=== PATIENT | male | born 2000 | race Two or more races ===

== ENCOUNTER 2025-04-26 12:21 | Emergency (ER) | payer MEDICAID, OTHER ==
[~2025-04-26] VITALS: Ht 182.9 cm; Wt 74.8 kg
[2025-04-26 12:29] VITALS: BP 143/74; PULSE 101; RESP 16; TEMP 98.7; O2SAT 97
[2025-04-26] MEDS: ONDANSETRON ODT 4 MG TAB PO ONE (13:58)
--- NOTE | 2025-04-26 14:02 | ED.PDOC ---
GI ASSESSMENT HPI Comments THIS IS A 25 YEAR-OLD MALE WHO PRESENTS TO THE ED WITH A CHIEF COMPLAINT OF N/V AFTER ETOH INTOXIFICATION X2 DAYS AGO. PATIENT ALSO REPORTS REOCCURRING RASH TO ABDOMEN AND BACK. PATIENT REPORTS ADDITIONAL RECENT EXPOSURE TO FAMILY ILLNESS. PATIENT HAS NO FURTHER COMPLAINTS AT THIS TIME AND OTHERWISE DENIES COUGH, HEMATEMESIS, DIZZINESS, CHEST PAIN, ABDOMINAL PAIN, OR LOC. PATIENT IS ALERT, ORIENTED X 4, AND HAS STEADY GAIT. Chief Complaint: Nausea/Vomiting Time Seen by MD: 13:56 Reviewed Notes: Nurses Notes, Medications, Allergies Home Meds Active Scripts Ondansetron Odt 4MG Tab (ZOFRAN PO) 4 Mg Tb, 4 MG PO BID, #14 TAB ODT TAB-DISSOLVE IN MOUTH, THEN SWALLOW Prov:PERI FELDER 04/26/25 Information Source: Patient Mode of Arrival: Ambulatory Timing: Days Duration: Since onset, Days Prehospital treatment: None Vomitus: Food Particles Severity: Moderate Recent: Contact Exposure, Ingestion of ETOH Associated sign and symptoms: Nausea, Vomiting Past Medical History PAST MEDICAL HISTORY: Denies Surgical History: Denies all surgeries Family History Family History: Reviewed,noncontributory to illness, No family hx of Cancer, No family hx of DM, No family hx of Heart alyson, No family hx of HTN, No family hx ofKidney alyson, No family hx of Liver alyson, No family hx of Lung alyson, No family hx of Stroke Social History Smoker: Non-Smoker Alcohol: Denies ETOH Use Drugs: Denies Drug Use Lives In: Home Constitutional: denies: chills, diaphoresis, fatigue, fever, malaise, sweats, weakness, others EENTM: denies: blurred vision, double vision, ear bleeding, ear discharge, ear drainage, ear pain, ear ringing, eye pain, eye redness, hearing loss, mouth pain, mouth swelling, nasal discharge, nose bleeding, nose congestion, nose pain, photophobia, tearing, throat pain, throat swelling, voice changes, others Respiratory: denies: cough, hemoptysis, orthopnea, SOB at rest, shortness of breath, SOB with excertion, stridor, wheezing, others Cardiovascular: denies: chest pain, dizzy spells, diaphoresis, Dyspnea on exertion, edema, irregular heart beat, left arm pain, lightheadedness, palpitations, PND, syncope, others Gastrointestinal: reports: nausea, vomiting; denies: abdomen distended, abdominal pain, blood streaked bowels, constipated, diarrhea, dysphagia, difficulty swallowing, hematemesis, melena, poor appetite, poor fluid intake, rectal bleeding, rectal pain, others Genitourinary: denies: burning, dysuria, flank pain, frequency, hematuria, incontinence, penile discharge, penile sore, pain, testicle pain, testicle swelling, urgency, others Neurological: denies: dizziness, fainting, headache, left sided numbness, left sided weakness, numbness, paresthesia, pre-existing deficit, right sided numbness, right sided weakness, seizure, speech problems, tingling, tremors, weakness, others Musculoskeletal: denies: back pain, gout, joint pain, joint swelling, muscle pain, muscle stiffness, neck pain, others Integumetry: denies: bruises, change in color, change in hair/nails, dryness, laceration, lesions, lumps, rash, wounds, others Allergic/Immunocompromised: denies: Difficulty Healing, Frequent Infections, Hives, Itching, others Hematologic/Lymphatic: denies: anemia, blood clots, easy bleeding, easy bruising, swollen glands, others Endocrine: denies: excessive hunger, excessive sweating, excessive thirst, excessive urination, flushing, intolerance to cold, intolerance to heat, unexplained weight gain, unexplained weight loss, others Psychiatric: denies: anxiety, bipolar disorder, depression, hopeless, panic disorder, schizophrenia, sleepless, suicidal, others All Other Systems: Reviewed and Negative Physical Exam General Appearance: Mild Distress, Normal HEENT: Normal ENT Inspection, PERRL/EOMI, Pharynx Normal, TMs Normal Neck: Full Range of Motion, Non-Tender, Normal, Normal Inspection Respiratory: Chest Non-Tender, Lungs Clear, No Accessory Muscle Use, No Respiratory Distress, Normal Breath Sounds Cardiovascular: No Edema, No JVD, No Murmur, No Gallop, Normal Peripheral Pulses, Regular Rate/Rhythm Breast Exam: Deferred Gastrointestinal: No Organomegaly, Non Tender, No Pulsatile Mass, Normal Bowel Sounds, Soft Genitalia: Deferred Pelvic: Deferred Rectal: Deferred Extremities: No calf tenderness, Normal capillary refill, Normal inspection, Normal range of motion, Non-tender, No pedal edema Musculoskeletal : Apperance: Normal Neurologic: Alert, architectural manager II-XII nml as Tested, No Motor Deficits, Normal Affect, Normal Mood, No Sensory Deficits Cerebellar Function: Normal Reflexes: Normal Skin: Dry, Normal Color, Warm Peripheral Pulses: 2+ carotid (R), 2+ carotid (L) Lymphatic: No Adenopathy Was a procedure done? Was a procedure done?: No GI differential Dx Differential Diagnosis: Gastroenteritis, Dehydration, Food Poisoning, Ba cterial, Parasitic, Viral X-Ray, Labs, Meds, VS Vital Signs Date Time Temp Pulse Resp B/P (MAP) Pulse Ox O2 Delivery O2 Flow Rate FiO2 04/26/25 12:29 98.7 101 16 143/74 97 98.7 Current Medications Medications (Trade) Dose Ordered Sig/Maribel Route Start Time Stop Time Status Last Admin Ondansetron HCl (Zofran Po) 4 mg ONCE ONCE PO 04/26/25 14:00 04/26/25 14:01 DC 04/26/25 13:58 X-Ray, Labs, Meds, VS Comment EXTERNAL MEDICAL RECORDS REVIEWED: [NONE] INDEPENDENT HISTORIANS: [NONE] SOCIAL DETERMINANTS OF HEALTH: [NONE] LABS ORDERED: PT DECLINED BLOOD TEST REVIEWED AND INTERPRETED RESULTS: NONE IMAGING ORDERED: NONE TREATMENTS ORDERED: ZOFRAN 4MG ODT PROCEDURES PERFORMED: NONE CRITICAL CARE TIME: NONE PATIENT LEFT AMA DUE TO AN INABILITY TO WAIT FOR BLOOD TESTS AND TREATMENT. PATIENT WILL RETURN TO THE ED AT A LATER TIME. PATIENT WAS PRESCRIBED ZOFRAN FOR N/V WITH MEDICATION WARNINGS GIVEN. I HAVE DISCUSSED THE PATIENT WITH THE ATTENDING PHYSICIAN, DR. TALLEY AND SHE AGREES WITH THE PATIENT'S PLAN OF CARE . Images Reviewed?: Images reviewed and evaluated by me Time of 1ST Reevaluation: 14:14 Reevaluation 1ST: Unchanged Patient Education/Counseling: Diagnosis, Treatment Family Education/Counseling: Diagnosis, Treatment SEPSIS Sepsis Screen Date sepsis recognized/suspect: Apr 26, 2025 Time Sepsis recognized/suspect: 1231 Recent Procedure: No On Antibiotic Therapy: No Respiratory Rate >20: No Heart Rate >90: Yes Temp<36 C (96.8 F) or >38.3 C: No SBP <90 or MAP <65 mmHG: No New Acute Mental Status Change: No Is the patient on CPAP, BIPAP,: No Vital Signs Date Time Temp Pulse Resp B/P (MAP) Pulse Ox O2 Delivery O2 Flow Rate FiO2 04/26/25 12:29 98.7 101 16 143/74 97 98.7 Medications Medications Dose Ordered Sig/Maribel Route Start Time Stop Time Status Last Admin Dose Admin Ondansetron HCl 4 mg ONCE ONCE PO 04/26/25 14:00 04/26/25 14:01 DC 04/26/25 13:58 Departure 1 Departure Time of Disposition: 14:17 Impression: Primary Impression: Nausea with vomiting Qualified Codes: R11.2 - Nausea with vomiting, unspecified Additional Impression: ETOH abuse Disposition: LEFT AGAINST MEDICAL ADVICE Condition: Stable Additional Instructions: e-Prescriptions Ondansetron Odt 4MG Tab (ZOFRAN PO) 4 Mg Tb 4 MG PO BID, #14 TAB ODT TAB-DISSOLVE IN MOUTH, THEN SWALLOW Prov: PERI FELDER 04/26/25 Critical Care Note Critical Care Time?: No Stability Stability form required: No Heart Score Heart Score: Heart Score Response (Comments) Value History N/A 0 EKG N/A 0 Age N/A 0 Risk Factors N/A 0 Troponin N/A 0 Total 0 I personally scribed for PERI FELDER ([email or web address]) on 04/26/25 at 14:02. Electronically submitted by Lenora Maher ([employer]). I personally scribed for PERI FELDER ([email or web address]) on 04/26/25 at 14:06. Electronically submitted by Lenora Maher ([employer]). PERI FELDER Apr 26, 2025 14:02
[2025-04-26] MEDS ORDERED: ZOFR4T PO (14:06)
== END 2025-04-26 13:56 | disposition left against medical advice (07) ==
LOC: ER 12:21
DX: F10.10 Alcohol abuse, uncomplicated (principal); R11.2 Nausea with vomiting, unspecified; Y90.9 Presence of alcohol in blood, level not specified
CPT/HCPCS: 99283; Q0162

== ENCOUNTER 2025-04-27 09:17 | Inpatient (IN) | payer MEDICAID ==
[~2025-04-27] VITALS: Ht 182.9 cm; Wt 73.5 kg
[~2025-04-27 09:17] MED LIST: ZOFR4T PO
--- NOTE | 2025-04-27 09:34 | ED.PDOC ---
GI ASSESSMENT HPI Comments This is a 25 year old male presenting to the ED with chief complaint of N/V. Patient reports that he has been experiencing nausea and vomiting for the past 5 days with associated abdominal pain and chest pain. Patient relays that he was seen yesterday in the ED, however, medication provided only minimal relief and when he was discharged, he went to sleep and did not shredder picker his prescription. Patient states that his children at home had similar symptoms prior to onset of his own. Patient notes Zofran provided no relief in nausea. Patient denies any fever, chills, diarrhea, SOB, or sore throat. Chief Complaint: Nausea/Vomiting Time Seen by MD: 09:33 Reviewed Notes: Nurses Notes, Medications, Allergies Allergies: Coded Allergies: NO KNOWN ALLERGIES (Unverified , 04/27/25) Home Meds Active Scripts Ondansetron Odt 4MG Tab (ZOFRAN PO) 4 Mg Tb, 4 MG PO BID, #14 TAB ODT TAB-DISSOLVE IN MOUTH, THEN SWALLOW Prov:PERI FELDER 04/26/25 Information Source: Patient Mode of Arrival: Ambulatory Timing: Days Duration: Since onset Prehospital treatment: None Quality: Aching Vomitus: Watery Stool: Normal Severity: Moderate Recent: None Recent Hx of: None Pain Location: Epigastric Modifying Factors: Nothing Associated sign and symptoms: Nausea, Vomiting, Abdominal Pain Past Medical History PAST MEDICAL HISTORY: Denies Surgical History: Denies all surgeries Family History Family History: Reviewed,noncontributory to illness, No family hx of Cancer, No family hx of DM, No family hx of Heart alyson, No family hx of HTN, No family hx ofKidney alyson, No family hx of Liver alyson, No family hx of Lung alyson, No family hx of Stroke Social History Smoker: Non-Smoker Alcohol: Denies ETOH Use Drugs: Denies Drug Use Lives In: Home Constitutional: denies: chills, diaphoresis, fatigue, fever, malaise, sweats, weakness, others EENTM: denies: blurred vision, double vision, ear bleeding, ear discharge, ear drainage, ear pain, ear ringing, eye pain, eye redness, hearing loss, mouth pain, mouth swelling, nasal discharge, nose bleeding, nose congestion, nose pain, photophobia, tearing, throat pain, throat swelling, voice changes, others Respiratory: denies: cough, hemoptysis, orthopnea, SOB at rest, shortness of breath, SOB with excertion, stridor, wheezing, others Cardiovascular: reports: chest pain; denies: dizzy spells, diaphoresis, Dyspnea on exertion, edema, irregular heart beat, left arm pain, lightheadedness, palpitations, PND, syncope, others Gastrointestinal: reports: abdominal pain, nausea, vomiting; denies: abdomen distended, blood streaked bowels, constipated, diarrhea, dysphagia, difficulty s wallowing, hematemesis, melena, poor appetite, poor fluid intake, rectal bleeding, rectal pain, others Genitourinary: denies: burning, dysuria, flank pain, frequency, hematuria, incontinence, penile discharge, penile sore, pain, testicle pain, testicle swelling, urgency, others Neurological: denies: dizziness, fainting, headache, left sided numbness, left sided weakness, numbness, paresthesia, pre-existing deficit, right sided numbness, right sided weakness, seizure, speech problems, tingling, tremors, weakness, others Musculoskeletal: denies: back pain, gout, joint pain, joint swelling, muscle pain, muscle stiffness, neck pain, others Integumetry: denies: bruises, change in color, change in hair/nails, dryness, laceration, lesions, lumps, rash, wounds, others Allergic/Immunocompromised: denies: Difficulty Healing, Frequent Infections, Hives, Itching, others Hematologic/Lymphatic: denies: anemia, blood clots, easy bleeding, easy bruising, swollen glands, others Endocrine: denies: excessive hunger, excessive sweating, excessive thirst, excessive urination, flushing, intolerance to cold, intolerance to heat, un explained weight gain, unexplained weight loss, others Psychiatric: denies: anxiety, bipolar disorder, depression, hopeless, panic disorder, schizophrenia, sleepless, suicidal, others All Other Systems: Reviewed and Negative Physical Exam General Appearance: No Apparent Distress, Normal HEENT: Normal ENT Inspection, Pharynx Normal, TMs Normal Neck: Full Range of Motion, Non-Tender, Normal, Normal Inspection Respiratory: Chest Non-Tender, Lungs Clear, No Accessory Muscle Use, No Respiratory Distress, Normal Breath Sounds Cardiovascular: No Edema, No JVD, No Murmur, No Gallop, Normal Peripheral Pu lses, Regular Rate/Rhythm Breast Exam: Deferred Gastrointestinal: No Organomegaly, Non Tender, No Pulsatile Mass, Normal Bowel Sounds, Soft Genitalia: Deferred Pelvic: Deferred Rectal: Deferred Extremities: No calf tenderness, Normal capillary refill, Normal inspection, Normal range of motion, Non-tender, No pedal edema Musculoskeletal : Apperance: Normal Neurologic: Alert, lead software test engineer II-XII nml as Tested, No Motor Deficits, Normal Affect, Normal Mood, No Sensory Deficits Cerebellar Function: Normal Reflexes: Normal Skin: Dry, Normal Color, Warm Lymphatic: No Adenopathy Was a procedure done? Was a procedure done?: No GI differential Dx Differential Diagnosis: Gastroenteritis, Electrolyte Imbalance, Food Poisoning, Bacterial, Viral X-Ray, Labs, Meds, VS Vital Signs Date Time Temp Pulse Resp B/P (MAP) Pulse Ox O2 Delivery O2 Flow Rate FiO2 04/27/25 09:20 98.1 120 16 148/99 97 98.1 Lab Test 04/27/25 09:38 Range/Units White Blood Count 26.1 H 4.4-10.8 10^3/uL Red Blood Count 5.64 4.5-5.90 10^6/uL Hemoglobin 19.0 H 13.5-17.5 g/dL Hematocrit 54.9 H 41.0-53.0 % Mean Corpuscular Volume 97.2 80.0-100.0 fL Mean Corpuscular Hemoglobin 33.6 H 28.0-32.0 pg Mean Corpuscular Hemoglobin Concent 34.5 32.0-36.0 g/dL Red Cell Distribution Width 15.2 H 11.8-14.3 % Platelet Count 249 140-450 10^3/uL Mean Platelet Volume 8.6 6.9-10.8 fL Neutrophils (%) (Auto) 80.2 H 37.0-80.0 % Lymphocytes (%) (Auto) 10.2 10.0-50.0 % Monocytes (%) (Auto) 8.8 0.0-12.0 % Eosinophils (%) (Auto) 0.4 0.0-7.0 % Basophils (%) (Auto) 0.4 0.0-2.0 % Neutrophils # (Auto) 21.0 H 1.6-8.6 10 ^3/uL Lymphocytes # (Auto) 2.7 0.4-5.4 10 ^3/uL Monocytes # (Auto) 2.3 H 0-1.3 10 ^3/uL Eosinophils # (Auto) 0.1 0-0.8 10 ^3/uL Basophils # (Auto) 0.1 0-0.2 10 ^3/uL Nucleated Red Blood Cells 0.1 % Sodium Level 137 136-145 mmol/L Potassium Level 4.5 3.5-5.1 mmol/L Chloride Level 93 L 98-107 mmol/L Carbon Dioxide Level 29 20-31 mmol/L Anion Gap 15 5-15 Blood Urea Nitrogen 38 H 9-23 mg/dL Creatinine 4.06 H 0.700-1.30 mg/dL Glomerular Filtration Rate Calc 20 >90 mL/min BUN/Creatinine Ratio 9.4 L 10.0-20.0 Serum Glucose 134 H 74-106 mg/dL Calcium Level 11.0 H 8.7-10.4 mg/dL Current Medications Medications (Trade) Dose Ordered Sig/Maribel Route Start Time Stop Time Status Last Admin Sodium Chloride 1,000 ml @ 1,000 mls/hr Q1H ONCE IV 04/27/25 09:45 04/27/25 10:44 DC 04/27/25 10:11 Metoclopramide HCl (Reglan Injection) 10 mg ONCE ONCE IV 04/27/25 09:45 04/27/25 09:46 DC 04/27/25 10:11 Ketorolac Tromethamine (Toradol Injection) 15 mg ONCE ONCE IV 04/27/25 09:45 04/27/25 09:46 DC 04/27/25 10:11 Sodium Chloride 1,000 ml @ 1,000 mls/hr Q1H ONCE IV 04/27/25 11:30 04/27/25 12:29 DC 04/27/25 12:03 Cefepime HCl 50 ml @ 12.5 mls/hr ONCE ONCE IV 04/27/25 11:45 04/27/25 15:44 04/27/25 12:03 Time of 1ST Reevaluation: 10:32 Reevaluation 1ST: Improved Patient Education/Counseling: Diagnosis, Treatment Family Education/Counseling: No Family Present SEPSIS Sepsis Screen Date sepsis recognized/suspect: Apr 27, 2025 Time Sepsis recognized/suspect: 917 Recent Procedure: No On Antibiotic Therapy: No Respiratory Rate >20: No Heart Rate >90: Yes Temp<36 C (96.8 F) or >38.3 C: No SBP <90 or MAP <65 mmHG: No New Acute Mental Status Change: No Is the patient on CPAP, BIPAP,: No Physician Orders Rapid Influenza A&B (04/27/25 09:32) Covid19 Antigen Mignon (04/27/25 ) Lactic Acid W/ Reflex Order (04/27/25 11:22) Blood Culture (04/27/25 11:22) Chest Portable (04/27/25 11:22) Ct Ab Pel Wo Con-No Oral Or Iv (04/27/25 11:22) Cefepime 2gm/50ml Ns (Maxipime 2gm/50ml) (04/27/25 11:45) NS (04/27/25 13:15) Vital Signs Date Time Temp Pulse Resp B/P (MAP) Pulse Ox O2 Delivery O2 Flow Rate FiO2 04/27/25 09:20 98.1 120 16 148/99 97 98.1 Laboratory Tests Test 04/27/25 09:38 White Blood Count 26.1 10^3/uL (4.4-10.8) H Medications Medications Dose Ordered Sig/Maribel Route Start Time Stop Time Status Last Admin Dose Admin Cefepime HCl 50 ml @ 12.5 mls/hr ONCE ONCE IV 04/27/25 11:45 04/27/25 15:44 04/27/25 12:03 Ketorolac Tromethamine 15 mg ONCE ONCE IV 04/27/25 09:45 04/27/25 09:46 DC 04/27/25 10:11 Metoclopramide HCl 10 mg ONCE ONCE IV 04/27/25 09:45 04/27/25 09:46 DC 04/27/25 10:11 Sodium Chloride 1,000 ml @ 1,000 mls/hr Q1H ONCE IV 04/27/25 09:45 04/27/25 10:44 DC 04/27/25 10:11 Sodium Chloride 1,000 ml @ 1,000 mls/hr Q1H ONCE IV 04/27/25 11:30 04/27/25 12:29 DC 04/27/25 12:03 Departure 1 Departure Time of Disposition: 13:15 (Patient presents with new renal failure in the setting of colitis and profuse dehydration.) Impression: Primary Impression: Acute renal failure Qualified Codes: N17.9 - Acute kidney failure, unspecified Additional Impressions: Dehydration Shortness of breath Disposition: ADMITTED INPATIENT Admit to: Tele Condition: Guarded Critical Care Note Critical Care Time?: Yes Critical care comment: Acute renal failure Authorized and Performed by: Kody Patten MD Total critical care time: Approximately 38 minutes Due to a high probability of clinically significant, life threatening deterioration, the patient required my highest level of preparedness to intervene emergently and I personally spent this critical care time directly and personally managing the patient. This critical care time included obtaining a history; examining the patient; pulse oximetry; ordering and review of studies; arranging urgent treatment with development of a management plan; evaluation of patient's response to treatment; frequent reassessment; and, discussions with other providers. This critical care time was performed to assess and manage the high probability of imminent, life-threatening deterioration that could result in multi-organ failure. It was exclusive of separately billable procedures and treating other patients and teaching time. Please see my other sections and the rest of the note for further information on patient assessment and treatment. Stability Stability form required: No Heart Score Heart Score: Heart Score Response (Comments) Value History N/A 0 EKG N/A 0 Age N/A 0 Risk Factors N/A 0 Troponin N/A 0 Total 0 I personally scribed for KODY PATTEN MD ([email or web address]) on 04/27/25 at 09:34. Electronically submitted by Vasyl Lane ([email or web address]). KODY PATTEN MD Apr 27, 2025 09:34
[2025-04-27 09:57] LABS: Hematocrit 54.9 % (41.0-53.0); Hemoglobin 19.0 g/dL (13.5-17.5); Mean Corpuscular Hemoglobin 33.6 pg (28.0-32.0); Mean Corpuscular Volume 97.2 fL (80.0-100.0); Nucleated Red Blood Cells % 0.1 %
[2025-04-27 10:03] LABS: Chloride 93 mmol/L (98-107); Potassium 4.5 mmol/L (3.5-5.1); Sodium 137 mmol/L (136-145)
[2025-04-27 10:04] LABS: Anion Gap 15 (5-15); Carbon Dioxide 29 mmol/L (20-31)
[2025-04-27 10:05] LABS: Calcium 11.0 mg/dL (8.7-10.4)
[2025-04-27 10:09] LABS: BUN/Creatinine Ratio 9.4 (10.0-20.0)
[2025-04-27 10:11] LABS: Blood Urea Nitrogen 38 mg/dL (9-23); Glucose 134 mg/dL (74-106)
[2025-04-27] MEDS: SODIUM CHLORIDE 0.9% 1,000 ML IV ONE ×3 (10:11→13:15)
[2025-04-27] MEDS: METOCLOPRAMIDE HCL 5MG/ml INJ 2ml VIAL IV ONE (10:11)
[2025-04-27] MEDS: KETOROLAC TROMETH 30 MG/ML 1ML VIAL IV ONE (10:11)
--- NOTE | 2025-04-27 11:53 | DVH ---
XY CHEST PORTABLE, HISTORY: abdominal pain COMPARISON: None None TECHNICAL DATA: 1 view of the chest was obtained. FINDINGS: Lines and tubes: None Cardiomediastinal silhouette: normal Pulmonary vasculature: normal Lung expansion: normal Lung airspace: normal Lung interstitium: normal Pleura: normal Pneumothorax: no Bones: Unremarkable Other: no IMPRESSION: No acute intrathoracic abnormality.
[2025-04-27] MEDS: CEFEPIME 2GM/50ML NS 50 ML IV ONE (12:03)
--- NOTE | 2025-04-27 12:09 | DVH ---
Exam: CT CT AB PEL WO CON-NO ORAL OR IV History: abdominal pain Comparison Study: None Technique: Multidetector spiral CT of the abdomen was performed from lung bases to pubic symphysis. I maging was performed without IV contrast. Axial, coronal and sagittal multiplanar reformats were obta ined from the axial data set by the technologist. Radiation Dose : 1. Abdomen/Pelvis: CTDIvol 6.57 mGy, DLP 413.09 mGy*cm. Findings: Evaluation of solid organs is limited due to lack of intravenous contrast use. Lung Bases: No acute or significant lung base finding. Normal heart size. No pleural or pericardial effusion. Liver: The liver is normal in size. No focal lesions. Gallbladder and Biliary Tree: Unremarkable Spleen: Unremarkable Pancreas: The pancreas is grossly normal in appearance. Adrenal Glands: Unremarkable Kidneys: Kidneys are grossly normal without calculi or hydronephrosis. Bladder: Grossly unremarkable for degree of distention. Bowel: The stomach is grossly normal in appearance. Mild diffuse colonic bowel wall thickening; possi homar mild colitis. The appendix is not visualized; however, no secondary findings of acute appendiciti s identified. Ascites: Absent Lymphadenopathy: No mesenteric, retroperitoneal or periportal lymphadenopathy. Abdominal Wall and Mesentery: Unremarkable. Vasculature: The visualized abdominal aorta is normal in size and caliber. Evaluation of abdominal a nd pelvic vessels is limited due to lack of intravenous contrast. Pelvic Organs: Unremarkable Musculoskeletal: No aggressive focal bony lesions, acute fractures or dislocation. IMPRESSION: Mild diffuse colonic bowel wall thickening; possibly mild colitis. Radiation optimization: All CT scans at this facility use at least one of these dose optimization david hniques: automated exposure control mA and/or kV adjustment per patient size (includes targeted exam s where dose is matched to clinical indication) or iterative reconstruction.
[2025-04-27 12:11] VITALS: PULSE 70; RESP 22; O2SAT 97
[2025-04-27] MEDS ORDERED: ACETAMINOPHEN 325 MG TAB PO PRN (14:30)
[2025-04-27] MEDS ORDERED: MORPHINE SULFATE INJ 2 MG/ml SYRG IV PRN (14:30)
--- NOTE | 2025-04-27 14:33 | DVHHP2 ---
History of Present Illness Reason for Visit: Abdominal pain with nausea and vomiting History of Present Illness Vasyl Walker is a 25-year-old male with past medical history of 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 Patient reports that was here yesterday at [facility] was given sublingual Zofran and discharged. He states that the pain is worsening. He also reports that he took an [id number] hydration packet and nausea tablet with no relief. Patient also reports that he typically drinks a bottle of vodka about 750 mL per day and stopped drinking recently but restarted couple of days ago. He also reports that he drank a 5th of a bottle of hard liquor. Patient's parents mom Douglas and dad Patrick at the bedside. Patient also reports that he was vomiting brown and greenish bile. He states he has been unable to eat. Patient denies any recent trauma or injury, recent sick contacts, recent travels, recent ingestion of spoiled food, chest pain, shortness of breath, fever, chills, lightheadedness, weakness, dizziness, diarrhea, or urinary symptoms. Mom reports that the heart murmur had resolved including the kidney disease when he was discharged as a preemie. Hepatobiliary: Cirrhosis Renal/: Chronic renal insuff Past Medical History Prematurity Detached retina Heart murmur Past Surgical History: None Family History: Other (Mom with asthma) Smoke: No ALCOHOL: heavy Drugs: None Lives: with Family Domestic Violence: Neg Review of Systems Gastrointestinal: Nausea, Vomiting, Abdominal Pain Allergies: Coded Allergies: NO KNOWN ALLERGIES (Unverified , 04/27/25) Exam Vital Signs Vital Signs Date Time Temp Pulse Resp B/P (MAP) Pulse Ox O2 Delivery O2 Flow Rate FiO2 04/27/25 12:11 98.1 70 17 153/89 (110) 98 98.1 04/27/25 12:11 Room Air* 0 21 General Appearance: Alert, Oriented X3, Cooperative, No acute distress HEENT: Atraumatic, PERRLA, EOMI, Mucous membr. moist/pink Respiratory: Clear to auscultation, Normal air movement Cardiovascular: Regular rate, Normal S1, Normal S2, No murmurs Abdominal: Normal bowel sounds, Soft Extremities: No clubbing, No cyanosis, No edema, Normal pulses Skin: No significant lesion Neuro: Normal speech, Strength at 5/5 X4 ext, Normal tone, Sensation intact Psych/Mental Status: Mental status NL, Mood NL Labs/Xrays Labs Test 04/27/25 13:18 04/27/25 13:15 04/27/25 13:05 04/27/25 09:38 Range/Units Lactic Acid Level 1.3 0.4-2.0 mmol/L White Blood Count 26.1 H 4.4-10.8 10^3/uL Red Blood Count 5.64 4.5-5.90 10^6/uL Hemoglobin 19.0 H 13.5-17.5 g/dL Hematocrit 54.9 H 41.0-53.0 % Mean Corpuscular Volume 97.2 80.0-100.0 fL Mean Corpuscular Hemoglobin 33.6 H 28.0-32.0 pg Mean Corpuscular Hemoglobin Concent 34.5 32.0-36.0 g/dL Red Cell Distribution Width 15.2 H 11.8-14.3 % Platelet Count 249 140-450 10^3/uL Mean Platelet Volume 8.6 6.9-10.8 fL Neutrophils (%) (Auto) 80.2 H 37.0-80.0 % Lymphocytes (%) (Auto) 10.2 10.0-50.0 % Monocytes (%) (Auto) 8.8 0.0-12.0 % Eosinophils (%) (Auto) 0.4 0.0-7.0 % Basophils (%) (Auto) 0.4 0.0-2.0 % Neutrophils # (Auto) 21.0 H 1.6-8.6 10 ^3/uL Lymphocytes # (Auto) 2.7 0.4-5.4 10 ^3/uL Monocytes # (Auto) 2.3 H 0-1.3 10 ^3/uL Eosinophils # (Auto) 0.1 0-0.8 10 ^3/uL Basophils # (Auto) 0.1 0-0.2 10 ^3/uL Nucleated Red Blood Cells 0.1 % Sodium Level 137 136-145 mmol/L Potassium Level 4.5 3.5-5.1 mmol/L Chloride Level 93 L 98-107 mmol/L Carbon Dioxide Level 29 20-31 mmol/L Anion Gap 15 5-15 Blood Urea Nitrogen 38 H 9-23 mg/dL Creatinine 4.06 H 0.700-1.30 mg/dL Glomerular Filtration Rate Calc 20 >90 mL/min BUN/Creatinine Ratio 9.4 L 10.0-20.0 Serum Glucose 134 H 74-106 mg/dL Calcium Level 11.0 H 8.7-10.4 mg/dL XY CHEST PORTABLE, HISTORY: abdominal pain COMPARISON: None None TECHNICAL DATA: 1 view of the chest was obtained. FINDINGS: Lines and tubes: None Cardiomediastinal silhouette: normal Pulmonary vasculature: normal Lung expansion: normal Lung airspace: normal Lung interstitium: normal Pleura: normal Pneumothorax: no Bones: Unremarkable Other: no IMPRESSION: No acute intrathoracic abnormality. Exam: CT CT AB PEL WO CON-NO ORAL OR IV History: abdominal pain Comparison Study: None Technique: Multidetector spiral CT of the abdomen was performed from lung bases to pubic symphysis. Imaging was performed without IV contrast. Axial, coronal and sagittal multiplanar reformats were obtained from the axial data set by the technologist. Radiation Dose : 1. Abdomen/Pelvis: CTDIvol 6.57 mGy, DLP 413.09 mGy*cm. Findings: Evaluation of solid organs is limited due to lack of intravenous contrast use. Lung Bases: No acute or significant lung base finding. Normal heart size. No pleural or pericardial effusion. Liver: The liver is normal in size. No focal lesions. Gallbladder and Biliary Tree: Unremarkable Spleen: Unremarkable Pancreas: The pancreas is grossly normal in appearance. Adrenal Glands: Unremarkable Kidneys: Kidneys are grossly normal without calculi or hydronephrosis. Bladder: Grossly unremarkable for degree of distention. Bowel: The stomach is grossly normal in appearance. Mild diffuse colonic bowel wall thickening; possibly mild colitis. The appendix is not visualized; however, no secondary findings of acute appendicitis identified. Ascites: Absent Lymphadenopathy: No mesenteric, retroperitoneal or periportal lymphadenopathy. Abdominal Wall and Mesentery: Unremarkable. Vasculature: The visualized abdominal aorta is normal in size and caliber. Evaluation of abdominal and pelvic vessels is limited due to lack of intravenous contrast. Pelvic Organs: Unremarkable Musculoskeletal: No aggressive focal bony lesions, acute fractures or dislocation. IMPRESSION: Mild diffuse colonic bowel wall thickening; possibly mild colitis. SEPSIS Sepsis Screen Date sepsis recognized/suspect: Apr 27, 2025 Time Sepsis recognized/suspect: 0918 Recent Procedure: No On Antibiotic Therapy: No Respiratory Rate >20: No Heart Rate >90: Yes Temp<36 C (96.8 F) or >38.3 C: No SBP <90 or MAP <65 mmHG: No New Acute Mental Status Change: No Is the patient on CPAP, BIPAP,: No Physician Orders Rapid Influenza A&B (04/27/25 09:32) Covid19 Antigen Mignon (04/27/25 ) Blood Culture (04/27/25 11:22) Chest Portable (04/27/25 11:22) Ct Ab Pel Wo Con-No Oral Or Iv (04/27/25 11:22) Cefepime 2gm/50ml Ns (Maxipime 2gm/50ml) (04/27/25 11:45) Parathyroid Hormone Intact (04/27/25 14:26) Zosyn Extended Infusion (04/27/25 22:00) Blood Culture (04/27/25 14:26) Urinalysis (04/27/25 14:26) Urine Bacterial Culture (04/27/25 14:26) Erythrocyte Sedimentation Rate (04/27/25 14:26) C-Reactive Protein (04/27/25 14:26) Admit (04/27/25 14:26) Allergies (04/27/25 14:26) Code Status (04/27/25 14:26) 0.9% Ns 1000 Ml (04/27/25 14:30) Hydrocodone-Acet 5/325mg Tab ([place] (04/27/25 14:30) Ondansetron Hcl (Zofran) (04/27/25 14:30) Complete Blood Count (04/28/25 04:00) Comprehensive Metabolic Panel (04/28/25 04:00) Cardiac Diet-2gna,Lofat,Lochol (04/27/25 Dinner) Acetaminophen Tablet (Tylenol Tablet) (04/27/25 14:30) Morphine Sulfate Injection (04/27/25 14:30) Sequential Compression Device (04/27/25 ) Thyroid Stimulating Hormone (04/27/25 14:31) Urinalysis (04/27/25 14:31) Drug Screen (04/27/25 14:31) Vital Signs Date Time Temp Pulse Resp B/P (MAP) Pulse Ox O2 Delivery O2 Flow Rate FiO2 04/27/25 12:11 98.1 70 17 153/89 (110) 98 98.1 04/27/25 12:11 70 22 97 Room Air* 0 21 04/27/25 09:20 98.1 120 16 148/99 97 98.1 Laboratory Tests Test 04/27/25 09:38 04/27/25 13:05 White Blood Count 26.1 10^3/uL (4.4-10.8) H Lactic Acid Level 1.3 mmol/L (0.4-2.0) Medications Medications Dose Ordered Sig/Maribel Route Start Time Stop Time Status Last Admin Dose Admin Cefepime HCl 50 ml @ 12.5 mls/hr ONCE ONCE IV 04/27/25 11:45 04/27/25 15:44 04/27/25 12:03 12.5 MLS/HR Ketorolac Tromethamine 15 mg ONCE ONCE IV 04/27/25 09:45 04/27/25 09:46 DC 04/27/25 10:11 15 MG Metoclopramide HCl 10 mg ONCE ONCE IV 04/27/25 09:45 04/27/25 09:46 DC 04/27/25 10:11 10 MG Sodium Chloride 1,000 ml @ 1,000 mls/hr Q1H ONCE IV 04/27/25 09:45 04/27/25 10:44 DC 04/27/25 10:11 1,000 MLS/HR Sodium Chloride 1,000 ml @ 1,000 mls/hr Q1H ONCE IV 04/27/25 11:30 04/27/25 12:29 DC 04/27/25 12:03 1,000 MLS/HR Assessment/Plan Assessment/Plan Assessment Intractable abdominal pain with nausea and vomiting likely due to ETOH abuse Leukocytosis rule out sepsis Sinus tach Acute kidney injury History of premature at 24 weeks with intubation during hospitalization History of liver cirrhosis History of kidney disease as a child History of detached retina History of heart murmur Plan Admit to tele monitor for delirium tremens Antiemetics Pain management CT abdomen and pelvis noted Blood cultures Lactic noted IV antibiotics-Zosyn COVID and flu test Chest x-ray noted UA TSH PTH ESR CRP Blood cultures Urine culture CIWA Banana bag UDS Diet Home medications reconciled DVT prophylaxis-SCDs PUD prophylaxis-PPIs Discussed plan of care with patient, patient's mom and dad, and nurse Nephrology consult [id number] Advanced care planning discussed [id number] Preventive counseling healthy eating habits, physical activity, and regular checkups Plan discussed with: Patient, Other My Orders Orders - TOREY JARRETT Procedure Category Date Status Time Parathyroid Hormone LAB 04/27/25 Transmitted Intact 14:26 Zosyn Extended PHA 04/27/25 Transmitted Infusion 22:00 Blood Culture MARCOS 04/27/25 Transmitted 14:26 Urinalysis LAB 04/27/25 Transmitted 14:26 Urine Bacterial MARCOS 04/27/25 Transmitted Culture 14:26 Erythrocyte LAB 04/27/25 Transmitted Sedimentation Rate 14:26 C-Reactive Protein LAB 04/27/25 Transmitted 14:26 Admit ADMIT 04/27/25 Transmitted 14:26 Allergies ENRIQUE 04/27/25 Transmitted 14:26 Code Status CODE 04/27/25 Transmitted 14:26 0.9% Ns 1000 Ml PHA 04/27/25 Transmitted 14:30 Hydrocodone-Acet PHA 04/27/25 Transmitted 5/325mg Tab ([place] 14:30 Ondansetron Hcl PHA 04/27/25 Transmitted (Zofran) 14:30 Complete Blood Count LAB 04/28/25 Verified 04:00 Comprehensive LAB 04/28/25 Verified Metabolic Panel 04:00 Cardiac DIET 04/27/25 Transmitted Diet-2gna,Lofat,Lochol Dinner Acetaminophen Tablet PHA 04/27/25 Transmitted (Tylenol Tablet) 14:30 Morphine Sulfate PHA 04/27/25 Transmitted Injection 14:30 Sequential ENRIQUE 04/27/25 Transmitted Compression Device Thyroid Stimulating LAB 04/27/25 Verified Hormone 14:31 Urinalysis LAB 04/27/25 Verified 14:31 Drug Screen LAB 04/27/25 Verified 14:31 Date of Service: Apr 27, 2025 Billing Provider: TOREY JARRETT Common Visit Codes: [id number] INP/OBS CARE (HIGH) Secondary Visit Codes: [id number] COUNSELING IND, [id number] CARE PLAN 30 MINUTES TOREY JARRETT Apr 27, 2025 14:33
[2025-04-27 14:44] LABS: COVID19 ANTIGEN SOFIA FIA NEGATIVE (NEGATIVE)
[2025-04-27] MEDS ORDERED: THIAMINE HCL 100 MG TAB PO ONE (15:45)
[2025-04-27] MEDS ORDERED: MULTIPLE VITAMIN TAB PO ONE (15:45)
[2025-04-27] MEDS ORDERED: FOLIC ACID 1 MG TAB PO ONE (15:45)
[2025-04-27 16:02] LABS: Magnesium 2.4 mg/dL (1.6-2.6)
[2025-04-27 16:14] VITALS: PULSE 94; RESP 17; O2SAT 95
[2025-04-27 16:42] VITALS: PULSE 78; RESP 18; O2SAT 97
[2025-04-27 16:49] VITALS: BP 130/84; PULSE 85; RESP 20; TEMP 98.3; O2SAT 97
[2025-04-27] MEDS: SODIUM CHLORIDE 0.9% 1,000 ML IV SCH (18:25)
[2025-04-27 18:56] LABS: Urine Budding Yeast OCCASIONAL /hpf (None Seen); Urine Protein, UAD 2+ (Negative)
[2025-04-27] MEDS: FOLIC ACID 1 MG, MAGNESIUM SULF SDV 50% 8 MEQ, MULTIPLE VITAMIN 10 ML, THIAMINE INJ 100... INJ SCH (18:57)
[2025-04-27 19:05] LABS: Cannabinoid Screen, Urine Pos (NEGATIVE)
[2025-04-27 19:09] LABS: Amphetamine Screen, Urine Neg (NEGATIVE); Barbiturate Scree,Urine Neg (NEGATIVE); Opiate Scree,Urine Neg (NEGATIVE); Phencyclidine Screen, Urine Neg (NEGATIVE)
[2025-04-27 19:10] LABS: Benzodiazephine Screen, Urine Neg (NEGATIVE); Cocaine Screen, Urine Neg (NEGATIVE)
[2025-04-27] MEDS: HYDROcodone-ACET 5/325MG TAB PO PRN (19:58)
[2025-04-27 20:00] VITALS: PULSE 83
[2025-04-27 20:33] VITALS: BP 121/73; PULSE 80; RESP 19; TEMP 98.3; O2SAT 95
[2025-04-27] MEDS: PIPERACILLIN-TAZOB 3.375GM 100 ML IV SCH (22:14)
[2025-04-28] VITALS (8 sets, daily range): BP systolic 121–139; BP diastolic 60–85; PULSE 53–71; RESP 17–20; TEMP 98.1–98.6; O2SAT 97–100
[2025-04-28 07:44] LABS: Hematocrit 42.8 % (41.0-53.0); Hemoglobin 14.9 g/dL (13.5-17.5); Mean Corpuscular Hemoglobin 33.8 pg (28.0-32.0); Mean Corpuscular Volume 97.4 fL (80.0-100.0); Nucleated Red Blood Cells % 0.1 %
[2025-04-28 07:58] LABS: Alanine Aminotransferase 19 U/L (7-40); Alkaline Phosphatase 74 U/L (46-116); Anion Gap 12 (5-15); BUN/Creatinine Ratio 14.6 (10.0-20.0); Calcium 8.9 mg/dL (8.7-10.4); Carbon Dioxide 26 mmol/L (20-31); Chloride 103 mmol/L (98-107); Glucose 88 mg/dL (74-106); Sodium 141 mmol/L (136-145)
[2025-04-28 07:59] LABS: Total Protein 6.9 g/dL (5.7-8.2)
[2025-04-28 08:00] LABS: Albumin 4.2 g/dL (3.2-4.8)
[2025-04-28 08:09] LABS: Bilirubin, Total 2.0 mg/dL (0.2-1.0); Blood Urea Nitrogen 29 mg/dL (9-23); Potassium 3.4 mmol/L (3.5-5.1)
--- NOTE | 2025-04-28 08:19 | DVHINCON2 ---
Date of service: Apr 28, 2025 Referring Physician Hospitalist Reason for Consultation Acute kidney injury History of Present Illness 25-year-old male with history of chronic alcohol abuse daily drinking of vodka presents to the hospital complaining of three days of abdominal pain nausea vomiting. Nephrology consulted to elevated creatinine level. Creatinine at presentation was greater than 4.0 the previous baseline. Patient was admitted with a diagnosis of alcohol hold cessation rule out withdrawal Allergies: Coded Allergies: NO KNOWN ALLERGIES (Unverified , 04/27/25) Home Meds Active Scripts Ondansetron Odt 4MG Tab (ZOFRAN PO) 4 Mg Tb, 4 MG PO BID, #14 TAB ODT TAB-DISSOLVE IN MOUTH, THEN SWALLOW Prov:PERI FELDER 04/26/25 Current Medications Current Medications Medications (Trade) Dose Ordered Sig/Maribel Route PRN Reason Start Time Stop Time Status Last Admin Piperacillin Sod/ Tazobactam Sod 100 ml @ 25 mls/hr Q8HR IV 04/27/25 22:00 04/28/25 06:06 Sodium Chloride 1,000 ml @ 60 mls/hr [id number] IV 04/27/25 14:30 04/27/25 18:25 Acetaminophen/ Hydrocodone Bitart ([place] 5/325MG Tab) 1 tab Q4HP PRN PO MODERATE PAIN (4-6 PAIN SCALE) 04/27/25 14:30 04/27/25 19:58 Ondansetron HCl (Zofran) 4 mg Q4HP PRN IV NAUSEA / VOMITING 04/27/25 14:30 Acetaminophen (Tylenol Tablet) 650 mg Q6HP PRN PO PAIN SCALE 1-3 OR TEMP>100.4 04/27/25 14:30 Morphine Sulfate 2 mg Q4HPRN PRN IV SEVERE PAIN (7-10 PAIN SCALE) 04/27/25 14:30 Thiamine HCl 100 mg DAILY PO 04/28/25 10:00 Folic Acid 1 mg DAILY PO 04/28/25 10:00 Multivitamins (Mvi Tab) 1 tab DAILY PO 04/28/25 10:00 Folic Acid 1 mg/ Magnesium Sulfate 8 meq/ Multivitamins 10 ml/Thiamine HCl 100 mg/Sodium Chloride 1,013.2 ml @ 126.247 mls/hr DAILY@1800 INJ 04/27/25 18:00 04/28/25 02:02 DC 04/27/25 18:57 Family History: Patient reports no known family medical history. H&P Exam Vital Signs/I&O Vital Sign Date Time Temp Pulse Resp B/P (MAP) Pulse Ox O2 Delivery O2 Flow Rate FiO2 04/28/25 05:02 98.2 71 19 123/67 (85) 100 98.2 04/27/25 20:00 Room Air* 0 21 Labs/Diagnostic Data Labs/Diagnostic Data Laboratory Tests Test 04/28/25 06:26 04/27/25 18:42 04/27/25 15:11 04/27/25 13:18 Range/Units White Blood Count 14.5 #H 4.4-10.8 10^3/uL Red Blood Count 4.39 L 4.5-5.90 10^6/uL Hemoglobin 14.9 # 13.5-17.5 g/dL Hematocrit 42.8 # 41.0-53.0 % Mean Corpuscular Volume 97.4 80.0-100.0 fL Mean Corpuscular Hemoglobin 33.8 H 28.0-32.0 pg Mean Corpuscular Hemoglobin Concent 34.7 32.0-36.0 g/dL Red Cell Distribution Width 14.3 11.8-14.3 % Platelet Count 171 140-450 10^3/uL Mean Platelet Volume 8.7 6.9-10.8 fL Neutrophils (%) (Auto) 62.1 37.0-80.0 % Lymphocytes (%) (Auto) 24.7 10.0-50.0 % Monocytes (%) (Auto) 12.9 H 0.0-12.0 % Eosinophils (%) (Auto) 0.1 0.0-7.0 % Basophils (%) (Auto) 0.2 0.0-2.0 % Neutrophils # (Auto) 9.0 H 1.6-8.6 10 ^3/uL Lymphocytes # (Auto) 3.6 0.4-5.4 10 ^3/uL Monocytes # (Auto) 1.9 H 0-1.3 10 ^3/uL Eosinophils # (Auto) 0 0-0.8 10 ^3/uL Basophils # (Auto) 0 0-0.2 10 ^3/uL Nucleated Red Blood Cells 0.1 % Sodium Level 141 136-145 mmol/L Potassium Level 3.4 L 3.5-5.1 mmol/L Chloride Level 103 # 98-107 mmol/L Carbon Dioxide Level 26 20-31 mmol/L Anion Gap 12 5-15 Blood Urea Nitrogen 29 H 9-23 mg/dL Creatinine 1.98 #H 0.700-1.30 mg/dL Glomerular Filtration Rate Calc 47 >90 mL/min BUN/Creatinine Ratio 14.6 10.0-20.0 Serum Glucose 88 74-106 mg/dL Calcium Level 8.9 8.7-10.4 mg/dL Total Bilirubin 2.0 H 0.2-1.0 mg/dL Aspartate Amino Transferase (AST) 53 H 13-40 U/L Alanine Aminotransferase (ALT) 19 7-40 U/L Alkaline Phosphatase 74 46-116 U/L Total Protein 6.9 5.7-8.2 g/dL Albumin 4.2 3.2-4.8 g/dL Urine Color Yellow Yellow Urine Clarity Turbid H Clear Urine pH 6.0 5.0-9.0 Urine Specific [place] 1.040 H 1.001-1.035 Urine Protein 2+ H Negative Urine Ketones 2+ H Negative Urine Blood Negative Negative /uL Urine Nitrite Negative Negative Urine Bilirubin 1+ Negative Urine Urobilinogen 2 H Negative mg/dL Urine Leukocyte Esterase 1+ Negative /uL Urine RBC 3 0 - 3 /hpf Urine Microscopic WBC 19 H 0-3 /HPF Urine Squamous Epithelial Cells Few <5 /hpf Urine Bacteria Few H None Seen /hpf Urine Hyaline Casts Few 0 - 2 /lpf Urine Waxy Casts Few 0 /lpf Urine Mucus Few None Seen Urine Yeast (Budding) Occasional None Seen /hpf Urine Glucose Normal Normal mg/dL Urine Opiates Screen Neg NEGATIVE Urine Fentanyl Screen Neg NEGATIVE Urine Barbiturates Screen Neg NEGATIVE Urine Phencyclidine Screen Neg NEGATIVE Urine Amphetamines Screen Neg NEGATIVE Urine Benzodiazepines Screen Neg NEGATIVE Urine Cocaine Screen Neg NEGATIVE Urine Cannabinoids Screen Pos NEGATIVE Erythrocyte Sedimentation Rate 6 0-20 mm/hr SARS-CoV-2 Antigen (Rapid) Negative NEGATIVE Test 04/27/25 13:15 04/27/25 13:05 04/27/25 09:38 04/27/25 09:36 Range/Units Influenza Type A Antigen Negative Negative Influenza Type B Antigen Negative Negative Lactic Acid Level 1.3 0.4-2.0 mmol/L Magnesium Level 2.4 1.6-2.6 mg/dL Plasma/Serum Blood Alcohol < 3.0 <10 mg/dL White Blood Count 26.1 H 4.4-10.8 10^3/uL Red Blood Count 5.64 4.5-5.90 10^6/uL Hemoglobin 19.0 H 13.5-17.5 g/dL Hematocrit 54.9 H 41.0-53.0 % Mean Corpuscular Volume 97.2 80.0-100.0 fL Mean Corpuscular Hemoglobin 33.6 H 28.0-32.0 pg Mean Corpuscular Hemoglobin Concent 34.5 32.0-36.0 g/dL Red Cell Distribution Width 15.2 H 11.8-14.3 % Platelet Count 249 140-450 10^3/uL Mean Platelet Volume 8.6 6.9-10.8 fL Neutrophils (%) (Auto) 80.2 H 37.0-80.0 % Lymphocytes (%) (Auto) 10.2 10.0-50.0 % Monocytes (%) (Auto) 8.8 0.0-12.0 % Eosinophils (%) (Auto) 0.4 0.0-7.0 % Basophils (%) (Auto) 0.4 0.0-2.0 % Neutrophils # (Auto) 21.0 H 1.6-8.6 10 ^3/uL Lymphocytes # (Auto) 2.7 0.4-5.4 10 ^3/uL Monocytes # (Auto) 2.3 H 0-1.3 10 ^3/uL Eosinophils # (Auto) 0.1 0-0.8 10 ^3/uL Basophils # (Auto) 0.1 0-0.2 10 ^3/uL Nucleated Red Blood Cells 0.1 % Sodium Level 137 136-145 mmol/L Potassium Level 4.5 3.5-5.1 mmol/L Chloride Level 93 L 98-107 mmol/L Carbon Dioxide Level 29 20-31 mmol/L Anion Gap 15 5-15 Blood Urea Nitrogen 38 H 9-23 mg/dL Creatinine 4.06 H 0.700-1.30 mg/dL Glomerular Filtration Rate Calc 20 >90 mL/min BUN/Creatinine Ratio 9.4 L 10.0-20.0 Serum Glucose 134 H 74-106 mg/dL Calcium Level 11.0 H 8.7-10.4 mg/dL Thyroid Stimulating Hormone (TSH) 0.62 0.55-4.78 uIU/mL Parathyroid Hormone (Intact) 75.9 18.4-80.1 pg/mL C-Reactive Protein High Sensitivity 1.28 H <1.0 mg/dL Assessment 25-year-old male admitted to the hospital with nausea vomiting decreased p.o. intake Acute kidney injury hemodynamically mediated previous home CKD unspecified baseline unknown Alcohol abuse with intoxication rule out withdrawal Hypokalemia Continuing with IV fluid hydration Avoid hypotension Supportive care Replace electrolytes magnesium, calcium, potassium, status post banana bag yesterday Rest of care as per primary medical team care time 55mins Plan discussed with: Patient THEE SHAH MD Apr 28, 2025 08:19
[2025-04-28] MEDS: MULTIPLE VITAMIN TAB PO SCH (09:16)
[2025-04-28] MEDS: THIAMINE HCL 100 MG TAB PO SCH (09:16)
[2025-04-28] MEDS: ONDANSETRON HCL 4 MG/2 ML VIAL IV PRN (09:16)
[2025-04-28] MEDS: FOLIC ACID 1 MG TAB PO SCH (09:17)
[2025-04-28] MEDS: SODIUM CHLORIDE 0.9% 1,000 ML IV SCH (12:24)
--- NOTE | 2025-04-28 14:24 | DVH ---
INDICATION: marino and elevated lft TECHNIQUE: Multiple real-time sonographic images of the abdomen were obtained. COMPARISON: None FINDINGS: The liver is homogenous in echogenicity. The liver measures 15cm. No intrahepatic biliary ductal dilatation is noted. 2 x 2 x 2 cm echogenic mass in the left hepatic lobe, which could represe nt a hemangioma. MRI with IV contrast recommended. The gallbladder wall measures 0.3 cm and is unremarkable. No gallstones or sludge is seen. The commo n duct measures 0.4 cm and is unremarkable. No pericholecystic fluid is noted. The right kidney measures 11cm. No hydronephrosis. The left kidney measures 10cm. No hydronephrosis . The spleen measures 7cm, within normal limits. The echogenicity is within normal limits. The pancreas is not well visualized due to obscuration from bowel gas. The visualized portions of the IVC and aorta are grossly unremarkable. IMPRESSION: 2 x 2 x 2 cm echogenic mass in the left hepatic lobe, which could represent a hemangioma. MRI with I V contrast recommended.
--- NOTE | 2025-04-28 16:23 | DVHPN2 ---
Progress Note Date Seen: Apr 28, 2025 Medical Necessity Reason Pt with a Central, PICC or Fol: No Subjective Patient reports: No new complaints Changes from previous H/P or p: No Changes Objective vital signs Vital Sign Date Time Temp Pulse Resp B/P (MAP) Pulse Ox O2 Delivery O2 Flow Rate FiO2 04/28/25 13:00 98.4 53 17 132/80 (97) 97 98.4 04/28/25 08:00 Room Air* 0 21 Total Intake and Output 04/27/25 04/27/25 04/28/25 15:00 23:00 07:00 Intake Total 680 ml Output Total 680 ml Balance 0 ml medications Current Medications Medications Dose Ordered Sig/Maribel Route Start Time Stop Time Status Last Admin Dose Admin Piperacillin Sod/ Tazobactam Sod 100 ml @ 25 mls/hr Q8HR IV 04/27/25 22:00 04/28/25 14:13 25 MLS/HR Acetaminophen/ Hydrocodone Bitart 1 tab Q4HP PRN PO 04/27/25 14:30 04/27/25 19:58 1 TAB Ondansetron HCl 4 mg Q4HP PRN IV 04/27/25 14:30 04/28/25 09:16 4 MG Acetaminophen 650 mg Q6HP PRN PO 04/27/25 14:30 Morphine Sulfate 2 mg Q4HPRN PRN IV 04/27/25 14:30 Thiamine HCl 100 mg DAILY PO 04/28/25 10:00 04/28/25 09:16 100 MG Folic Acid 1 mg DAILY PO 04/28/25 10:00 04/28/25 09:17 1 MG Multivitamins 1 tab DAILY PO 04/28/25 10:00 04/28/25 09:16 1 TAB Sodium Chloride 1,000 ml @ 75 mls/hr [id number] IV 04/28/25 08:30 04/28/25 12:24 75 MLS/HR Examination: GENERAL:Normal, HEENT:Normal, NECK:Normal, LUNGS:Normal, CVS:Normal, ABDOMEN:Normal, MSK:Normal, SKIN:Normal, NEURO:Normal laboratory and microbiology Laboratory Tests 04/28/25 06:26 Test 04/28/25 06:26 Range/Units Serum Glucose 88 74-106 mg/dL Microbiology Date/Time Source Procedure Growth Status 9/4/25 18:42 Voided Urine Urine Culture - Preliminary Resulted 04/27/25 12:55 Blood Blood Culture - Preliminary NO GROWTH AFTER 24 HOURS OF INCUBATION. Resulted Problem List/Assessment/Plan Problems(with codes): (1) Acute renal failure (2) Shortness of breath (3) Dehydration (4) Nausea with vomiting (5) ETOH abuse (6) Heavy alcohol consumption Problem List/Assessment/Plan Leukocytosis Hypokalemia Elevated bilirubin and LFT PATRICK likely due to dehydration Cannabinoid use Sinus tachycardic WBC trending down Renal function improving Ultrasound abdomen shows left hepatic lobe mass 2 x 2 x 2 cm. We will get a MRI abdomen and pelvis with the contrast to one renal function improves Continue IV fluids Nephrology recommendation appreciated Monitor for withdrawal Continue regular diet Full code SCD for DVT prophylaxis No GI prophylaxis needed Plan discussed with: Patient, Spouse, Other (Mother) My Orders My Orders Orders - PHYLLIS SONI MD Procedure Category Date Status Time Abdomen Complete US 04/28/25 Resulted Sonogram 12:25 Mri Abd & Plevis W/Wo MRI 04/28/25 Logged Cont 16:16 Date of Service: Apr 28, 2025 Billing Provider: PHYLLIS SONI MD Common Visit Codes: [id number] INP/OBS CARE(HIGH) PHYLLIS SONI MD Apr 28, 2025 16:23
[2025-04-29] VITALS (8 sets, daily range): BP systolic 118–139; BP diastolic 68–84; PULSE 50–60; RESP 14–20; TEMP 97.6–98.6; O2SAT 98–100
[2025-04-29 06:21] LABS: Anion Gap 11 (5-15); Carbon Dioxide 28 mmol/L (20-31); Chloride 101 mmol/L (98-107); Potassium 3.6 mmol/L (3.5-5.1); Sodium 140 mmol/L (136-145)
[2025-04-29 06:22] LABS: Calcium 9.2 mg/dL (8.7-10.4)
[2025-04-29 06:27] LABS: BUN/Creatinine Ratio 10.2 (10.0-20.0); Blood Urea Nitrogen 16 mg/dL (9-23); Glucose 85 mg/dL (74-106)
[2025-04-29 06:28] LABS: Magnesium 2.4 mg/dL (1.6-2.6)
--- NOTE | 2025-04-29 12:16 | ECG ---
[facility] Test Date: 2025-04-28 Test Time: 08:27:13 Pat Name: LATA KIRKLAND Department: Respiratoy Room: 0246T A Gender: M Assistant Professor Surgical Technology: MICHAEL : 2000 Requested By: TOREY JARRETT Order Number: [id number] Reading MD: Harshil Cruz Measurements Intervals Bird In Hand Rate: 58 P: 33 MS: 89 QRS: 37 QRSD: 85 T: 6 QT: 416 QTc: 409 Interpretive Statements Sinus rhythm Short MS interval Electronically Signed On 05-01-2025 10:13:16 PDT by Harshil Cruz Please click the below link to view image of tracing.
[2025-04-29 13:42] LABS: Hemoglobin 15.1 g/dL (13.5-17.5)
[2025-04-29 13:43] LABS: Hematocrit 44.1 % (41.0-53.0); Mean Corpuscular Hemoglobin 33.7 pg (28.0-32.0); Mean Corpuscular Volume 98.3 fL (80.0-100.0); Nucleated Red Blood Cells % 0.1 %
[2025-04-29 14:08] LABS: Albumin 4.2 g/dL (3.2-4.8); Alkaline Phosphatase 72 U/L (46-116); Anion Gap 12 (5-15); BUN/Creatinine Ratio 13.2 (10.0-20.0); Blood Urea Nitrogen 18 mg/dL (9-23); Calcium 9.3 mg/dL (8.7-10.4); Carbon Dioxide 26 mmol/L (20-31); Chloride 101 mmol/L (98-107); Glucose 81 mg/dL (74-106); Potassium 3.8 mmol/L (3.5-5.1); Sodium 139 mmol/L (136-145); Total Protein 6.7 g/dL (5.7-8.2)
[2025-04-29 14:09] LABS: Bilirubin, Total 1.6 mg/dL (0.2-1.0)
[2025-04-29 14:23] LABS: Alanine Aminotransferase 18 U/L (7-40)
--- NOTE | 2025-04-29 17:07 | DVHPN2 ---
Progress Note Date Seen: Apr 29, 2025 Medical Necessity Reason Pt with a Central, PICC or Fol: No Subjective Patient reports: Feels better Objective vital signs Vital Sign Date Time Temp Pulse Resp B/P (MAP) Pulse Ox O2 Delivery O2 Flow Rate FiO2 04/29/25 16:59 98.6 57 16 139/75 (96) 99 98.6 04/29/25 08:00 Room Air* 0 21 Total Intake and Output 04/28/25 04/28/25 04/29/25 15:00 23:00 07:00 Intake Total 700 ml 1310 ml 400 ml Balance 700 ml 1310 ml 400 ml medications Current Medications Medications Dose Ordered Sig/Maribel Route Start Time Stop Time Status Last Admin Dose Admin Piperacillin Sod/ Tazobactam Sod 100 ml @ 25 mls/hr Q8HR IV 04/27/25 22:00 04/29/25 14:51 25 MLS/HR Acetaminophen/ Hydrocodone Bitart 1 tab Q4HP PRN PO 04/27/25 14:30 04/27/25 19:58 1 TAB Ondansetron HCl 4 mg Q4HP PRN IV 04/27/25 14:30 04/28/25 19:57 4 MG Acetaminophen 650 mg Q6HP PRN PO 04/27/25 14:30 Morphine Sulfate 2 mg Q4HPRN PRN IV 04/27/25 14:30 Thiamine HCl 100 mg DAILY PO 04/28/25 10:00 04/29/25 11:04 100 MG Folic Acid 1 mg DAILY PO 04/28/25 10:00 04/29/25 10:34 1 MG Multivitamins 1 tab DAILY PO 04/28/25 10:00 04/29/25 10:34 1 TAB Sodium Chloride 1,000 ml @ 75 mls/hr [id number] IV 04/28/25 08:30 04/29/25 11:10 75 MLS/HR Examination: GENERAL:Normal, HEENT:Normal, NECK:Normal, LUNGS:Normal, CVS:Normal, ABDOMEN:Normal, MSK:Normal, SKIN:Normal, NEURO:Abnormal laboratory and microbiology Laboratory Tests 04/29/25 13:19 Test 04/29/25 13:19 Range/Units Serum Glucose 81 74-106 mg/dL Microbiology Date/Time Source Procedure Growth Status 04/27/25 18:42 Voided Urine Urine Culture - Preliminary Resulted 04/27/25 12:55 Blood Blood Culture - Preliminary NO GROWTH AFTER 48 HOURS OF INCUBATION. Resulted Labs and/or images reviewed: Labs reviewed by me, Image(s) reviewed by me Problem List/Assessment/Plan Problem List/Assessment/Plan Leukocytosis Hypokalemia Elevated bilirubin and LFT PATRICK likely due to dehydration Cannabinoid use Sinus tachycardic WBC trending down Renal function improving Renal function improved. MRI abdomen and pelvis to assess for liver mass Continue IV fluids Nephrology recommendation appreciated Monitor for withdrawal Continue regular diet Full code SCD for DVT prophylaxis No GI prophylaxis needed Plan discussed with: Patient My Orders My Orders Orders - PHYLLIS SONI MD Procedure Category Date Status Time Complete Blood Count LAB 04/30/25 Verified 05:00 Complete Blood Count LAB 05/01/25 Verified 05:00 Complete Blood Count LAB 05/02/25 Verified 05:00 Complete Blood Count LAB 05/03/25 Verified 05:00 Complete Blood Count LAB 05/04/25 Verified 05:00 Comprehensive LAB 04/30/25 Verified Metabolic Panel 05:00 Comprehensive LAB 05/01/25 Verified Metabolic Panel 05:00 Comprehensive LAB 05/02/25 Verified Metabolic Panel 05:00 Comprehensive LAB 05/03/25 Verified Metabolic Panel 05:00 Comprehensive LAB 05/04/25 Verified Metabolic Panel 05:00 Date of Service: Apr 29, 2025 Billing Provider: PHYLLIS SONI MD Common Visit Codes: [id number] INP/OBS CARE(MOD) PHYLLIS SONI MD Apr 29, 2025 17:07
--- NOTE | 2025-04-29 17:12 | DVHPN2 ---
Progress Note Date Seen: Apr 29, 2025 Medical Necessity Reason Pt with a Central, PICC or Fol: No Objective vital signs Vital Sign Date Time Temp Pulse Resp B/P (MAP) Pulse Ox O2 Delivery O2 Flow Rate FiO2 04/29/25 16:59 98.6 57 16 139/75 (96) 99 98.6 04/29/25 08:00 Room Air* 0 21 Total Intake and Output 04/28/25 04/28/25 04/29/25 15:00 23:00 07:00 Intake Total 700 ml 1310 ml 400 ml Balance 700 ml 1310 ml 400 ml medications Current Medications Medications Dose Ordered Sig/Maribel Route Start Time Stop Time Status Last Admin Dose Admin Piperacillin Sod/ Tazobactam Sod 100 ml @ 25 mls/hr Q8HR IV 04/27/25 22:00 04/29/25 14:51 25 MLS/HR Acetaminophen/ Hydrocodone Bitart 1 tab Q4HP PRN PO 04/27/25 14:30 04/27/25 19:58 1 TAB Ondansetron HCl 4 mg Q4HP PRN IV 04/27/25 14:30 04/28/25 19:57 4 MG Acetaminophen 650 mg Q6HP PRN PO 04/27/25 14:30 Morphine Sulfate 2 mg Q4HPRN PRN IV 04/27/25 14:30 Thiamine HCl 100 mg DAILY PO 04/28/25 10:00 04/29/25 11:04 100 MG Folic Acid 1 mg DAILY PO 04/28/25 10:00 04/29/25 10:34 1 MG Multivitamins 1 tab DAILY PO 04/28/25 10:00 04/29/25 10:34 1 TAB Sodium Chloride 1,000 ml @ 75 mls/hr [id number] IV 04/28/25 08:30 04/29/25 11:10 75 MLS/HR laboratory and microbiology Laboratory Tests 04/29/25 13:19 Test 04/29/25 13:19 Range/Units Serum Glucose 81 74-106 mg/dL Microbiology Date/Time Source Procedure Growth Status 04/27/25 18:42 Voided Urine Urine Culture - Preliminary Resulted 04/27/25 12:55 Blood Blood Culture - Preliminary NO GROWTH AFTER 48 HOURS OF INCUBATION. Resulted Problem List/Assessment/Plan Problem List/Assessment/Plan 25-year-old male admitted to the hospital with nausea vomiting decreased p.o. intake Acute kidney injury hemodynamically mediated CKD unspecified baseline unknown Alcohol abuse with intoxication rule out withdrawal Hypokalemia resolved from renal standpoint PATRICK is resolving and electrolytes normalized Avoid hypotension Supportive care Replace electrolytes magnesium, calcium, potassium Rest of care as per primary medical team Plan discussed with: Patient Total Time (mins): 33 THEE SHAH MD Apr 29, 2025 17:12
[2025-04-30 01:00] VITALS: BP 131/78; PULSE 52; RESP 18; TEMP 98; O2SAT 99
[2025-04-30 05:00] VITALS: BP 128/82; PULSE 61; RESP 17; TEMP 97; O2SAT 96
[2025-04-30 06:12] LABS: Hematocrit 42.6 % (41.0-53.0); Nucleated Red Blood Cells % 0.1 %
[2025-04-30 06:15] LABS: Hemoglobin 14.9 g/dL (13.5-17.5); Mean Corpuscular Hemoglobin 33.9 pg (28.0-32.0); Mean Corpuscular Volume 96.9 fL (80.0-100.0)
[2025-04-30 06:32] LABS: Alanine Aminotransferase 14 U/L (7-40); Albumin 4.2 g/dL (3.2-4.8); Alkaline Phosphatase 68 U/L (46-116); Anion Gap 10 (5-15); BUN/Creatinine Ratio 8.8 (10.0-20.0); Blood Urea Nitrogen 13 mg/dL (9-23); Calcium 9.2 mg/dL (8.7-10.4); Carbon Dioxide 29 mmol/L (20-31); Chloride 100 mmol/L (98-107); Glucose 88 mg/dL (74-106); Sodium 139 mmol/L (136-145); Total Protein 6.8 g/dL (5.7-8.2)
[2025-04-30 06:49] LABS: Bilirubin, Total 1.3 mg/dL (0.2-1.0); Potassium 3.5 mmol/L (3.5-5.1)
[2025-04-30 08:00] VITALS: PULSE 50; PULSE 58; RESP 16; O2SAT 100
[2025-04-30] MEDS ORDERED: GADOTERATE MEG 7.5 MMOL/15ml INJ (0.5MMOL/ml) IV ONE (08:04)
[2025-04-30 09:19] VITALS: BP 131/82; PULSE 53; RESP 16; TEMP 97.6; O2SAT 97
--- NOTE | 2025-04-30 09:24 | DVH ---
CLINICAL HISTORY: Liver lesion. TECHNIQUE: Multi sequence multi planar MRI images of the abdomen were obtained prior to and after th e uneventful administration of g15 mL Clariscan contrast. COMPARISON: US ABDOMEN COMPLETE SONOGRAM on DOS: 04/28/25, CT CT AB PEL WO CON-NO ORAL OR IV on DOS: 04/27/25 FINDINGS: Focal area of T2 hyperintense signal in the left hepatic lobe adjacent to the fissure of t he ligamentum teres, measures up to 2.2 cm in greatest dimension. The area is hypointense on precontr ast T1 weighted images and remains hypointense to the adjacent liver parenchyma on postcontrast image s, most consistent with pseudo lesion near the falciform ligament based on its location and appearanc e on CT and MRI. There is no suspicious liver lesion. No gallstones visualized in the gallbladder. No biliary ductal dilatation. The spleen, pancreas, adrenal glands, and left kidney appear unremarkable . Small cyst in the interpolar region of the right kidney measuring up to 1 cm. No abdominal aortic a neurysm. No other significant abnormality identified in the abdomen. IMPRESSION: 1. 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 No suspicious liver lesion i dentified. 2. Small cyst in the right kidney.
--- NOTE | 2025-04-30 09:26 | DVHPN2 ---
Progress Note Date Seen: Apr 30, 2025 Medical Necessity Reason Pt with a Central, PICC or Fol: No Subjective Changes from previous H/P or p: No Changes Objective vital signs Vital Sign Date Time Temp Pulse Resp B/P (MAP) Pulse Ox O2 Delivery O2 Flow Rate FiO2 04/30/25 09:19 97.6 53 16 131/82 (98) 97 97.6 04/29/25 20:10 Room Air* 0 21 Total Intake and Output 04/29/25 04/29/25 04/30/25 15:00 23:00 07:00 Intake Total 900 ml 500 ml Balance 900 ml 500 ml medications Current Medications Medications Dose Ordered Sig/Maribel Route Start Time Stop Time Status Last Admin Dose Admin Piperacillin Sod/ Tazobactam Sod 100 ml @ 25 mls/hr Q8HR IV 04/27/25 22:00 04/30/25 05:49 25 MLS/HR Acetaminophen/ Hydrocodone Bitart 1 tab Q4HP PRN PO 04/27/25 14:30 04/27/25 19:58 1 TAB Ondansetron HCl 4 mg Q4HP PRN IV 04/27/25 14:30 04/28/25 19:57 4 MG Acetaminophen 650 mg Q6HP PRN PO 04/27/25 14:30 Morphine Sulfate 2 mg Q4HPRN PRN IV 04/27/25 14:30 Thiamine HCl 100 mg DAILY PO 04/28/25 10:00 04/29/25 11:04 100 MG Folic Acid 1 mg DAILY PO 04/28/25 10:00 04/29/25 10:34 1 MG Multivitamins 1 tab DAILY PO 04/28/25 10:00 04/29/25 10:34 1 TAB Sodium Chloride 1,000 ml @ 75 mls/hr [id number] IV 04/28/25 08:30 04/29/25 11:10 75 MLS/HR laboratory and microbiology Laboratory Tests 04/30/25 05:42 Test 04/30/25 05:42 Range/Units Serum Glucose 88 74-106 mg/dL Microbiology Date/Time Source Procedure Growth Status 04/27/25 18:42 Voided Urine Urine Culture - Preliminary Resulted 04/27/25 12:55 Blood Blood Culture - Preliminary NO GROWTH AFTER 48 HOURS OF INCUBATION. Resulted Problem List/Assessment/Plan Problem List/Assessment/Plan 25-year-old male admitted to the hospital with nausea vomiting decreased p.o. intake Acute kidney injury hemodynamically mediated CKD unspecified baseline unknown Alcohol abuse with intoxication rule out withdrawal Hypokalemia resolved from renal standpoint PATRICK is resolving and electrolytes normalized Avoid hypotension Supportive care went for MRI for hepatic mass Replace electrolytes magnesium, calcium, potassium Rest of care as per primary medical team Plan discussed with: Patient Total Time (mins): 26 THEE SHAH MD Apr 30, 2025 09:26
[2025-04-30] MEDS ORDERED: THIA100T10 PO (10:29)
[2025-04-30] MEDS ORDERED: FOLI-119 PO (10:29)
[2025-04-30] MEDS ORDERED: MULTTAB99 PO (10:29)
--- NOTE | 2025-04-30 10:35 | DVHDS2 ---
Discharge Summary Date of Admission Apr 27, 2025 at 14:26 Date of Discharge: Apr 30, 2025 Admitting Diagnosis alcohol intoxication alcohol withdrawal PATRICK elevated LFT Labs/Diagnostic Data: Laboratory Results Test 04/30/25 05:42 04/29/25 05:45 04/27/25 18:42 04/27/25 15:11 White Blood Count 10.5 10^3/uL (4.4-10.8) Red Blood Count 4.40 10^6/uL (4.5-5.90) Hemoglobin 14.9 g/dL (13.5-17.5) Hematocrit 42.6 % (41.0-53.0) Mean Corpuscular Volume 96.9 fL (80.0-100.0) Mean Corpuscular Hemoglobin 33.9 pg (28.0-32.0) Mean Corpuscular Hemoglobin Concent 35.0 g/dL (32.0-36.0) Red Cell Distribution Width 14.0 % (11.8-14.3) Platelet Count 180 10^3/uL (140-450) Mean Platelet Volume 8.3 fL (6.9-10.8) Neutrophils (%) (Auto) 49.4 % (37.0-80.0) Lymphocytes (%) (Auto) 32.1 % (10.0-50.0) Monocytes (%) (Auto) 15.5 % (0.0-12.0) Eosinophils (%) (Auto) 2.3 % (0.0-7.0) Basophils (%) (Auto) 0.7 % (0.0-2.0) Neutrophils # (Auto) 5.2 10 ^3/uL (1.6-8.6) Lymphocytes # (Auto) 3.4 10 ^3/uL (0.4-5.4) Monocytes # (Auto) 1.6 10 ^3/uL (0-1.3) Eosinophils # (Auto) 0.2 10 ^3/uL (0-0.8) Basophils # (Auto) 0.1 10 ^3/uL (0-0.2) Nucleated Red Blood Cells 0.1 % Sodium Level 139 mmol/L (136-145) Potassium Level 3.5 mmol/L (3.5-5.1) Chloride Level 100 mmol/L (98-107) Carbon Dioxide Level 29 mmol/L (20-31) Anion Gap 10 (5-15) Blood Urea Nitrogen 13 mg/dL (9-23) Creatinine 1.48 mg/dL (0.700-1.30) Glomerular Filtration Rate Calc 66 mL/min (>90) BUN/Creatinine Ratio 8.8 (10.0-20.0) Serum Glucose 88 mg/dL (74-106) Calcium Level 9.2 mg/dL (8.7-10.4) Total Bilirubin 1.3 mg/dL (0.2-1.0) Aspartate Amino Transferase (AST) 35 U/L (13-40) Alanine Aminotransferase (ALT) 14 U/L (7-40) Alkaline Phosphatase 68 U/L (46-116) Total Protein 6.8 g/dL (5.7-8.2) Albumin 4.2 g/dL (3.2-4.8) Phosphorus Level 3.0 mg/dL (2.4-5.1) Magnesium Level 2.4 mg/dL (1.6-2.6) Urine Color Yellow (Yellow) Urine Clarity Turbid (Clear) Urine pH 6.0 (5.0-9.0) Urine Specific [place] 1.040 (1.001-1.035) Urine Protein 2+ (Negative) Urine Ketones 2+ (Negative) Urine Blood Negative /uL (Negative) Urine Nitrite Negative (Negative) Urine Bilirubin 1+ (Negative) Urine Urobilinogen 2 mg/dL (Negative) Urine Leukocyte Esterase 1+ /uL (Negative) Urine RBC 3 /hpf (0 - 3) Urine Microscopic WBC 19 /HPF (0-3) Urine Squamous Epithelial Cells Few /hpf (<5) Urine Bacteria Few /hpf (None Seen) Urine Hyaline Casts Few /lpf (0 - 2) Urine Waxy Casts Few /lpf (0) Urine Mucus Few (None Seen) Urine Yeast (Budding) Occasional /hpf (None Urine Glucose Normal mg/dL (Normal) Urine Opiates Screen Neg (NEGATIVE) Urine Fentanyl Screen Neg (NEGATIVE) Urine Barbiturates Screen Neg (NEGATIVE) Urine Phencyclidine Screen Neg (NEGATIVE) Urine Amphetamines Screen Neg (NEGATIVE) Urine Benzodiazepines Screen Neg (NEGATIVE) Urine Cocaine Screen Neg (NEGATIVE) Urine Cannabinoids Screen Pos (NEGATIVE) Erythrocyte Sedimentation Rate 6 mm/hr (0-20) Test 04/27/25 13:18 04/27/25 13:15 04/27/25 13:05 04/27/25 09:38 SARS-CoV-2 Antigen (Rapid) Negative (NEGATIVE) Influenza Type A Antigen Negative (Negative) Influenza Type B Antigen Negative (Negative) Lactic Acid Level 1.3 mmol/L (0.4-2.0) Plasma/Serum Blood Alcohol < 3.0 mg/dL (<10) Thyroid Stimulating Hormone (TSH) 0.62 uIU/mL (0.55-4.78) Parathyroid Hormone (Intact) 75.9 pg/mL (18.4-80.1) Test 04/27/25 09:36 C-Reactive Protein High Sensitivity 1.28 mg/dL (<1.0) Other Laboratory Tests 04/30/25 05:42 Brief Hx & Hospital Course: Vasyl Walker is a 25-year-old male with past medical history of 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 Patient reports that was here yesterday at [facility] was given sublingual Zofran and discharged. He states that the pain is worsening. He also reports that he took an [id number] hydration packet and nausea tablet with no relief. Patient also reports that he typically drinks a bottle of vodka about 750 mL per day and stopped drinking recently but restarted couple of days ago. He also reports that he drank a 5th of a bottle of hard liquor. Pt had alcohol withdrawal, elevated LFT, PATRICK with Cr over 4. Pt received aggresive IV fluids for hydration. Thiamine/folate/multivitamin. Pt renal function improving. CT abd/pelv showed mild colitis. US abd showed [id number] liver cyst. MRI abd showed pseudocyst. no actual cyst in liver. Pt is stable to be discharged home. Condition at Discharge: Good Final Diagnosis/Problems List alcohol withdrawal alcohol abuse PATRICK dehydration elevated LFT Problems List: (1) Heavy alcohol consumption Status: Acute (2) Nausea with vomiting Status: Acute (3) ETOH abuse Status: Acute (4) Acute renal failure Status: Acute (5) Dehydration Status: Acute (6) Emesis Status: Acute Discharge Disposition: Home Discharge Instruct/Medications Diet: Regular Activity: No Restrictions, As Tolerated Care Plan: Follow up with PCP in 1 week to check renal and liver function Scheduled Folic Acid (Folic Acid), 1 MG PO DAILY Multiple Vitamin (Mvi Tab), 1 TAB PO DAILY Ondansetron Odt 4MG Tab (Zofran Po), 4 MG PO BID Thiamine Hcl (Vitamin B-1), 100 MG PO DAILY 55 Discharge Statement: "Patient was advised to return to the ER or call 911 if any headaches, dizziness, shortness of breath, chest pain, abdominal pain, bleeding, fevers, or worsening of medical condition. Patient was counseled about treatment plan, medications, possible side effects, patientverbalized understanding. All questions were answered to the best of my ability. This discharge took greater then 30 minutes in planning, reviewing documentation, counseling the patient, and discussing with other team members." ASSESSMENT ASSESSMENT Assessment Date of Service: Apr 30, 2025 Billing Provider: PHYLLIS SONI MD Common Visit Codes: [id number] CARE-EACH +30MIN PHYLLIS SONI MD Apr 30, 2025 10:34
[2025-04-30 12:50] VITALS: BP 131/82; PULSE 53; RESP 16; TEMP 97.6; O2SAT 97
[2025-04-30 13:30] VITALS: BP 128/76; PULSE 55; RESP 14; TEMP 98.1; O2SAT 97
== END 2025-04-30 13:32 | disposition home or self-care (01) | DRG 249 ==
LOC: ER 09:17 → OVERFLOW 14:26 → TELE-EAST 17:49
PROVIDERS: ADMIT Internal Medicine; ATTEND Internal Medicine
DX: E86.0 Dehydration (principal); K52.9 Noninfective gastroenteritis and colitis, unspecified; N17.0 Acute kidney failure with tubular necrosis; K74.60 Unspecified cirrhosis of liver; Z20.822 Contact with and (suspected) exposure to COVID-19; F10.129 Alcohol abuse with intoxication, unspecified; F10.139 Alcohol abuse with withdrawal, unspecified; E87.6 Hypokalemia; Z82.5 Family history of asthma and other chronic lower respiratory diseases; Z79.899 Other long term (current) drug therapy; Y90.0 Blood alcohol level of less than 20 mg/100 ml; N18.31 Chronic kidney disease, stage 3a
CPT/HCPCS: 36415; 71045; 74176; 74183; 76700; 80048; 80053; 80307; 80320; 81001; 83605; 83735; 83970; 84100; 84443; 85025; 85652; 86141; 87040; 87086; 87426; 87804; 93005; 96374; 96375; 99291; G0378; J0692; J1885; J2405; J2543; Q0162